=== PATIENT | male | born 1980 | race Caucasian/White ===

== ENCOUNTER 2018-08-23 15:15 | Emergency (ER) ==
--- NOTE | 2018-08-23 15:50 | NUR ---
CALLED IN WAITING ROOM NO ANSWER.
--- NOTE | 2018-08-23 16:22 | NUR ---
PT LEFT W/OUT BEING SEEN.
== END 2018-08-23 16:23 | disposition left against medical advice (07) ==
LOC: ER 15:19
DX: Z53.21 Procedure and treatment not carried out due to patient leaving prior to being seen by health care provider (principal)

== ENCOUNTER 2021-12-07 10:49 | Emergency (ER) | payer SELFPAY ==
[~2021-12-07] VITALS: Ht 188 cm; Wt 77.1 kg
--- NOTE | 2021-12-07 10:55 | NUR ---
RECEIVED PT 40 YRS MALE CAME FROM HOME FOR SEIZURE AWAKE AND ALERT FALLOW COMMAND NO SOB
--- NOTE | 2021-12-07 11:09 | NUR ---
UNABLE TO PROVIDE URINE AT THIS TIME
[2021-12-07] MEDS ORDERED: LORAZEPAM INJ 2 MG/ML VIAL IVP ONE (12:00)
[2021-12-07] MEDS ORDERED: IV NS 0.9% 1,000 ML BAG IV ONE (12:00)
[2021-12-07 12:21] LABS: BASOPHILS % (AUTO) 0.2 % (0.0-2.0); EOSINOPHILS % (AUTO) 0.3 % (0.0-6.0); HEMATOCRIT 38 % (39-51); HEMOGLOBIN 13.1 g/dL (13.5-17.5); LYMPHOCYTES # (AUTO) 0.5 K/uL (0.8-4.8); LYMPHOCYTES % (AUTO) 4.7 % (20.0-44.0); MEAN CORPUSCULAR HGB CONC 34 g/dl (31.0-36.0); MEAN CORPUSCULAR VOLUME 97 fL (80-96); MONOCYTES # (AUTO) 0.4 K/uL (0.1-1.30); NEUTROPHILS # (AUTO) 9.8 K/uL (1.8-8.9); NEUTROPHILS % (AUTO) 90.8 % (43.0-81.0); PLATELET COUNT (AUTO) 155 K/uL (150-450); RED BLOOD CELL COUNT(AUTO) 3.95 MIL/uL (4.5-6.0); WHITE BLOOD COUNT (AUTO) 10.8 K/uL (4.3-11.0)
--- NOTE | 2021-12-07 12:24 | NUR ---
PT REFUSED CT SCAN OF head at this time dinesess any weekness or active SEIZURE
--- NOTE | 2021-12-07 12:27 | NUR ---
DR. ROSADO awre pt refused ct scan of head
[2021-12-07 12:40] LABS: CALCIUM, SERUM 8.8 mg/dL (8.5-10.1); CARBON DIOXIDE 21 mmol/L (21-32); CHLORIDE 101 mmol/L (98-107); CREATININE 1.3 mg/dL (0.6-1.3); GLUCOSE 195 mg/dL (74-106); POTASSIUM 4.1 mmol/L (3.5-5.1); SODIUM SERUM 136 mmol/L (136-145); UREA NITROGEN, BLOOD 18 mg/dL (7-18)
[2021-12-07] MEDS ORDERED: LORAZEPAM INJ 2 MG/ML VIAL ONE (13:00)
--- NOTE | 2021-12-07 13:00 | NUR ---
Resting and asleepy no pain
[2021-12-07 13:14] LABS: BILIRUBIN,DIRECT 0.2 mg/dL (0.0-0.2); BILIRUBIN,TOTAL 0.4 mg/dL (0.2-1.0)
[2021-12-07 13:15] LABS: ALANINE AMINOTRANSFERASE 122 U/L (12-78); ALKALINE PHOSPHATASE 87 U/L (46-116); ASPARTATE AMINOTRANSFERASE 120 U/L (15-37)
[2021-12-07 13:16] LABS: ALBUMIN 3.3 g/dL (3.4-5.0); ALCOHOL, BLOOD < 3 mg/dL (0-0); TOTAL PROTEIN, SERUM 6.8 g/dL (6.4-8.2)
[2021-12-07] MEDS ORDERED: CHLO25CA22 PO ×2 (13:24→13:32)
--- NOTE | 2021-12-07 14:15 | NUR ---
Patient discharged to home in stable condition. Written and verbal after care instructions given. Patient verbalizes understanding of instruction.
[2021-12-07 14:29] VITALS: BP 120/87
== END 2021-12-07 14:30 | disposition home or self-care (01) ==
LOC: ER 11:33
DX: S00.33XA Contusion of nose, initial encounter (principal); S00.512A Abrasion of oral cavity, initial encounter; Z79.899 Other long term (current) drug therapy; W18.30XA Fall on same level, unspecified, initial encounter; Y93.89 Activity, other specified; Y92.89 Other specified places as the place of occurrence of the external cause; Y99.8 Other external cause status
CPT/HCPCS: 99284; 96374; 96361; 85025; 80048; 80076; 36415; 80320; J2060; J7030; G0480

== ENCOUNTER 2022-02-13 20:32 | Emergency (ER) | payer SELFPAY ==
[~2022-02-13] VITALS: Ht 188 cm; Wt 77.1 kg
[~2022-02-13 20:32] MED LIST: CHLO25CA22 PO
--- NOTE | 2022-02-13 20:40 | NUR ---
TO ER BED 9. BIBRA FROM HOME C/O SEIZURE. WITNESSED BY ROOMATE NO HX OF SEIZURE. PER EMS POSTICTAL UPON ARRIVAL. FOREHEAD LAC NOTED, OPEN TO AIR & ACTIVELY BLEEDING. PT IS ALERT AT THIS TIME AND ADMITS TO ETOH WITHDRAWALS. RR EVEN AND NONLABORED. SEIZURE PRECAUTIONS IN PLACE. CONNECTED TO POX AND HEART MONITOR. AWAITING MD LIVE
[2022-02-13] MEDS ORDERED: LEVETIRACETAM (500MG) 500 MG/5 ML VIAL IV ONE ×2 (20:51→20:53)
[2022-02-13] MEDS ORDERED: LORAZEPAM INJ 2 MG/ML VIAL ONE (20:51)
[2022-02-13 20:59] LABS: BASOPHILS # (AUTO) 0.1 K/uL (0.0-0.2); BASOPHILS % (AUTO) 0.8 % (0.0-2.0); EOSINOPHILS % (AUTO) 0.1 % (0.0-6.0); HEMATOCRIT 38 % (39-51); HEMOGLOBIN 12.4 g/dL (13.5-17.5); LYMPHOCYTES # (AUTO) 2.2 K/uL (0.8-4.8); LYMPHOCYTES % (AUTO) 22.3 % (20.0-44.0); MEAN CORPUSCULAR HGB CONC 33 g/dl (31.0-36.0); MEAN CORPUSCULAR VOLUME 104 fL (80-96); MONOCYTES # (AUTO) 0.7 K/uL (0.1-1.30); MONOCYTES % (AUTO) 7.1 % (2.0-12.0); NEUTROPHILS # (AUTO) 6.9 K/uL (1.8-8.9); NEUTROPHILS % (AUTO) 69.7 % (43.0-81.0); PLATELET COUNT (AUTO) 106 K/uL (150-450); WHITE BLOOD COUNT (AUTO) 9.9 K/uL (4.3-11.0)
[2022-02-13] MEDS: LORAZEPAM INJ 2 MG/ML VIAL IVP ONE (20:59)
--- NOTE | 2022-02-13 20:59 | NUR ---
PT TAKEN FOR CT SCAN
[2022-02-13] MEDS: IV NS 0.9% 1,000 ML BAG IV ONE (21:19)
[2022-02-13] MEDS: LEVETIRACETAM (500MG) 1,000 MG in IV NS 0.9% 100 ML IV SCH (21:19)
[2022-02-13 21:20] LABS: ALBUMIN 3.5 g/dL (3.4-5.0); ALCOHOL, BLOOD < 3 mg/dL (0-0); ALKALINE PHOSPHATASE 107 U/L (46-116); ASPARTATE AMINOTRANSFERASE 540 U/L (15-37); BILIRUBIN,DIRECT 0.6 mg/dL (0.0-0.2); BILIRUBIN,TOTAL 1.4 mg/dL (0.2-1.0); CALCIUM, SERUM 8.2 mg/dL (8.5-10.1); CARBON DIOXIDE 14 mmol/L (21-32); CHLORIDE 95 mmol/L (98-107); CREATININE 1.5 mg/dL (0.6-1.3); GLUCOSE 131 mg/dL (74-106); SODIUM SERUM 138 mmol/L (136-145); TOTAL PROTEIN, SERUM 7.1 g/dL (6.4-8.2); UREA NITROGEN, BLOOD 12 mg/dL (7-18)
[2022-02-13 21:37] LABS: ALANINE AMINOTRANSFERASE 221 U/L (12-78)
[2022-02-13] MEDS ORDERED: POTA-58 PO (22:01)
[2022-02-13] MEDS ORDERED: CHLO25CA22 PO (22:01)
[2022-02-13] MEDS ORDERED: POTASSIUM CHLORIDE 20 MEQ TAB.PRT.SR PO ONE (22:10)
[2022-02-13] MEDS: POTASSIUM CHLORIDE 20 MEQ TAB.PRT.SR PO ONE (22:30)
--- NOTE | 2022-02-13 23:49 | NUR ---
IV removed. Catheter intact and site benign. Pressure and 4x4 applied to site. No bleeding noted.
--- NOTE | 2022-02-13 23:49 | NUR ---
Patient discharged to home in stable condition. Written and verbal after care instructions given. Patient verbalizes understanding of instruction.
[2022-02-14 01:00] VITALS: BP 141/93
== END 2022-02-14 01:01 | disposition home or self-care (01) ==
LOC: ER 20:33
DX: S01.81XA Laceration without foreign body of other part of head, initial encounter (principal); G40.89 Other seizures; E87.6 Hypokalemia; W18.39XA Other fall on same level, initial encounter; Y93.89 Activity, other specified; Y92.89 Other specified places as the place of occurrence of the external cause; Y99.8 Other external cause status
CPT/HCPCS: 12011; 99284; 96365; 96375; 70450; 70486; 85025; 80048; 80076; 36415; 82962; 80320; J2060; J7030 ×3; J1953 ×3; G0480

== ENCOUNTER 2022-12-04 14:57 | Emergency (ER) | payer MEDICAID, OTHER ==
[~2022-12-04] VITALS: Ht 185.4 cm; Wt 83.5 kg
[~2022-12-04 14:57] MED LIST changes: +POTA-58 PO
[2022-12-04 15:46] LABS: BASOPHILS % (AUTO) 0.5 % (0.0-2.0); EOSINOPHILS % (AUTO) 0.1 % (0.0-6.0); HEMATOCRIT 39 % (39-51); HEMOGLOBIN 13.2 g/dL (13.5-17.5); LYMPHOCYTES # (AUTO) 0.8 K/uL (0.8-4.8); LYMPHOCYTES % (AUTO) 11.8 % (20.0-44.0); MEAN CORPUSCULAR HEMOGLOBIN 36 PG (26.0-33.0); MEAN CORPUSCULAR HGB CONC 34 g/dl (31.0-36.0); MEAN CORPUSCULAR VOLUME 104 fL (80-96); MONOCYTES # (AUTO) 0.3 K/uL (0.1-1.30); MONOCYTES % (AUTO) 4.5 % (2.0-12.0); NEUTROPHILS # (AUTO) 5.5 K/uL (1.8-8.9); NEUTROPHILS % (AUTO) 83.1 % (43.0-81.0); PLATELET COUNT (AUTO) 56 K/uL (150-450); RED BLOOD CELL COUNT(AUTO) 3.71 MIL/uL (4.5-6.0); RED CELL DISTRIBUTION WIDTH 16.6 % (11.5-15.0); WHITE BLOOD COUNT (AUTO) 6.6 K/uL (4.3-11.0)
[2022-12-04 15:58] LABS: MAGNESIUM 1.5 mg/dL (1.8-2.4)
[2022-12-04 16:03] LABS: ALANINE AMINOTRANSFERASE 98 U/L (12-78); ALKALINE PHOSPHATASE 73 U/L (46-116); ASPARTATE AMINOTRANSFERASE 173 U/L (15-37); BILIRUBIN,DIRECT 0.8 mg/dL (0.0-0.2); BILIRUBIN,TOTAL 2.2 mg/dL (0.2-1.0); CALCIUM, SERUM 9.4 mg/dL (8.5-10.1); CARBON DIOXIDE 22 mmol/L (21-32); CHLORIDE 89 mmol/L (98-107); CREATININE 1.3 mg/dL (0.6-1.3); GLUCOSE 155 mg/dL (74-106); LIPASE 288 U/L (73-393); SODIUM SERUM 131 mmol/L (136-145); TOTAL PROTEIN, SERUM 7.5 g/dL (6.4-8.2); UREA NITROGEN, BLOOD 16 mg/dL (7-18)
[2022-12-04 16:10] LABS: ALCOHOL, BLOOD < 3 mg/dL (0-10)
[2022-12-04] MEDS ORDERED: LORAZEPAM INJ 2 MG/ML VIAL ONE (16:11)
[2022-12-04] MEDS: IV NS 0.9% 1,000 ML BAG IV ONE (16:14)
[2022-12-04] MEDS: LORAZEPAM INJ 2 MG/ML VIAL IV ONE (16:15)
[2022-12-04 17:10] VITALS: BP 120/78; TEMP 98.8; O2SAT 96
[2022-12-04 17:20] LABS: LYMPHOCYTES % (MANUAL) 12 % (16-48); MONOCYTES % (MANUAL) 5 % (0-11.0); NEUTROPHILS % (MANUAL) 83 (42-76)
[2022-12-04 17:21] LABS: ANISOCYTOSIS 1+; PLATELET ESTIMATE DECREASED
== END 2022-12-04 17:11 | disposition home or self-care (01) ==
LOC: ER 14:57
DX: R56.9 Unspecified convulsions (principal); Z79.899 Other long term (current) drug therapy
CPT/HCPCS: 99291; 96374; 96361; 93005; 71045; 70450; 85025; 80048; 83690; 80076; 83735; 85007; 36415; 84484; 82962; 80320; J2060; J7030; G0480

== ENCOUNTER 2023-08-07 12:54 | Emergency (ER) | payer OTHER ==
[~2023-08-07] VITALS: Ht 182.9 cm; Wt 95.3 kg
[2023-08-07 13:07] VITALS: TEMP 98.9
[2023-08-07] MEDS: IV NS 0.9% 1,000 ML BAG IV ONE (14:20)
[2023-08-07] MEDS ORDERED: LORAZEPAM INJ 2 MG/ML VIAL ONE (14:24)
[2023-08-07 14:26] LABS: BASOPHILS # (AUTO) 0.1 K/uL (0.0-0.2); BASOPHILS % (AUTO) 1.2 % (0.0-2.0); EOSINOPHILS % (AUTO) 0.1 % (0.0-6.0); HEMATOCRIT 42 % (39-51); HEMOGLOBIN 14.5 g/dL (13.5-17.5); LYMPHOCYTES # (AUTO) 0.4 K/uL (0.8-4.8); LYMPHOCYTES % (AUTO) 6.4 % (20.0-44.0); MEAN CORPUSCULAR HEMOGLOBIN 34 PG (26.0-33.0); MEAN CORPUSCULAR HGB CONC 34 g/dl (31.0-36.0); MEAN CORPUSCULAR VOLUME 99 fL (80-96); MONOCYTES # (AUTO) 0.4 K/uL (0.1-1.30); NEUTROPHILS % (AUTO) 86.3 % (43.0-81.0); PLATELET COUNT (AUTO) 117 K/uL (150-450); RED BLOOD CELL COUNT(AUTO) 4.25 MIL/uL (4.5-6.0); RED CELL DISTRIBUTION WIDTH 17.4 % (11.5-15.0)
[2023-08-07] MEDS: LORAZEPAM INJ 2 MG/ML VIAL IVP ONE (14:28)
[2023-08-07 14:39] LABS: CALCIUM, SERUM 9.7 mg/dL (8.5-10.1); CARBON DIOXIDE 25 mmol/L (21-32); CHLORIDE 100 mmol/L (98-107); CREATININE 1.2 mg/dL (0.6-1.3); GLUCOSE 166 mg/dL (74-106); POTASSIUM 3.9 mmol/L (3.5-5.1); SODIUM SERUM 135 mmol/L (136-145); UREA NITROGEN, BLOOD 11 mg/dL (7-18)
[2023-08-07 14:44] LABS: ALANINE AMINOTRANSFERASE 60 U/L (12-78); ALCOHOL, BLOOD < 3 mg/dL (0-10); ALKALINE PHOSPHATASE 55 U/L (46-116); ASPARTATE AMINOTRANSFERASE 56 U/L (15-37); BILIRUBIN,DIRECT 0.3 mg/dL (0.0-0.2); BILIRUBIN,TOTAL 0.8 mg/dL (0.2-1.0); TOTAL PROTEIN, SERUM 7.8 g/dL (6.4-8.2)
[2023-08-07 16:17] VITALS: BP 145/85; O2SAT 97
[2023-08-07] MEDS ORDERED: CHLO25CA22 PO (16:24)
[2023-08-07] MEDS ORDERED: TDAP [DIPH/PERTUSSIS/TET] 0.5 ML VIAL IM ONE (16:30)
== END 2023-08-07 16:16 | disposition left against medical advice (07) ==
LOC: ER 13:01
DX: S51.812A Laceration without foreign body of left forearm, initial encounter (principal); G40.89 Other seizures; F10.239 Alcohol dependence with withdrawal, unspecified; W18.39XA Other fall on same level, initial encounter; Y93.89 Activity, other specified; Y92.89 Other specified places as the place of occurrence of the external cause; Y99.8 Other external cause status; Y90.9 Presence of alcohol in blood, level not specified
CPT/HCPCS: 12001; 36415; 70450; 71045; 80048; 80076; 80320; 85025; 93005; 96361; 96374; 99291; J2060; J7030; G0480